=== PATIENT | male | born 1950 | race Caucasian/White ===

== ENCOUNTER 2019-10-11 19:41 | Emergency (ER) | payer OTHER, MEDICAID ==
[~2019-10-11] VITALS: Ht 182.9 cm; Wt 90.7 kg
[2019-10-11] MEDS ORDERED: BENA20TA9 PO (20:16)
[2019-10-11] MEDS ORDERED: HYDR-4354 PO (20:16)
[2019-10-11] MEDS ORDERED: ALBU8.5H8 IH (20:16)
[2019-10-11] MEDS ORDERED: HYDROCODONE/APAP 5-325MG TABLET ONE (20:19)
[2019-10-11] MEDS ORDERED: HYDROCODONE/APAP 5-325MG TABLET PO ONE (20:30)
--- NOTE | 2019-10-11 20:35 | NUR ---
Patient discharged to home in stable condition with taking patient. Written and verbal after care instructions given. Patient verbalizes understanding of instructions. Stressed follow up or return to ER for worsening s/s.
[2019-10-11 20:36] VITALS: BP 99/60
== END 2019-10-11 20:36 | disposition home or self-care (01) ==
LOC: ER 19:44
DX: K40.90 Unilateral inguinal hernia, without obstruction or gangrene, not specified as recurrent (principal)
CPT/HCPCS: A4663